=== PATIENT | male | born 1995 ===

== ENCOUNTER 2024-07-25 17:30 | Emergency (ER) | payer OTHER ==
[~2024-07-25] VITALS: Ht 177.8 cm; Wt 83.4 kg
[2024-07-25] MEDS ORDERED: ACETAMINOPHEN 325 MG TAB PO ONE (20:00)
[2024-07-25 20:07] VITALS: BP 125/78
== END 2024-07-25 20:08 | disposition home or self-care (01) ==
LOC: ED 17:30
DX: T60.3X1A Toxic effect of herbicides and fungicides, accidental (unintentional), initial encounter (principal); R51.9 Headache, unspecified
CPT/HCPCS: 99283; A9270